=== PATIENT | female | born 2000 | race Caucasian/White ===

== ENCOUNTER 2018-08-09 16:54 | Emergency (ER) | payer BC ==
[~2018-08-09] VITALS: Ht 180.3 cm; Wt 107.0 kg
[2018-08-09] MEDS ORDERED: SODIUM CHLORIDE 0.9% 1,000ML IVBOLUS ONE (17:30)
[2018-08-09] MEDS ORDERED: OXYcodone/APAP 5/325MG TABLET PO ONE (17:30)
[2018-08-09] MEDS ORDERED: CLINDAMYCIN PMX 900MG/50ML 50 ML IV ONE (17:30)
[2018-08-09] MEDS ORDERED: DEXAMETHASONE 4 MG/ML, 1ML IVPush ONE (17:30)
[2018-08-09] MEDS ORDERED: SODIUM CHLORIDE FLUSH 10ML SYR IVF ONE (17:30)
[2018-08-09] MEDS ORDERED: DEXAMETHASONE 4 MG/ML, 1ML ONE (17:55)
[2018-08-09] MEDS ORDERED: CLINDAMYCIN PMX 900MG/50ML 50 ML ONE (17:55)
[2018-08-09] MEDS ORDERED: OXYcodone/APAP 5/325MG TABLET ONE (17:55)
[2018-08-09 17:56] LABS: BASOPHILS # (AUTO) 0.02 x10^3/uL (0-0.3); BASOPHILS % (AUTO) 0 % (0-1); EOSINOPHILS # (AUTO) 0.02 x10^3/uL (0-0.8); EOSINOPHILS % (AUTO) 0 % (1-7); LYMPHOCYTES # (AUTO) 1.91 x10^3/uL (1-6.1); LYMPHOCYTES % (AUTO) 22 % (22-44); MD NO; MEAN CORPUSCULAR HEMOGLOBIN 30.9 pg (27.0-34.8); MEAN CORPUSCULAR HGB CONC 33.9 g/dL (32.4-35.8); MEAN CORPUSCULAR VOLUME 91.2 fL (80-100); MEAN PLATELET VOLUME 7.3 fL (7.4-10.4); MONOCYTES # (AUTO) 1.27 x10^3/uL (0-1.4); MONOCYTES % (AUTO) 15 % (2-9); NEUTROPHILS # (AUTO) 5.39 x10^3/uL (1.8-8.0); NEUTROPHILS % (AUTO) 63 % (42-75); PLATELET COUNT 257 x10^3/uL (130-400); RED BLOOD COUNT 4.64 x10^6/uL (3.82-5.3); RED CELL DISTRIBUTION WIDTH 12.6 % (9.6-15.2)
[2018-08-09] MEDS ORDERED: DEXAMETHASONE 12 MG in SODIUM CHLORIDE 0.9% 50 ML IV ONE (18:00)
--- NOTE | 2018-08-09 18:00 | NUR ---
PT RESTING IN BED, FAMILY AT BEDSIDE. NO ACUTE SIGNS OF DISTRESS. VSS. PT REPORTS NAUSEA AND HEADACHE FOR SEVERAL DAYS. PT REPORTS SHE HAS NOT BEEN EATING OR DRINKING FOR 2 DAYS.
[2018-08-09 18:07] LABS: ALBUMIN 3.8 g/dL (3.4-5.0); ANION GAP 8 mmol/L (5-15); CALCIUM 9.5 mg/dL (8.5-10.1); CHLORIDE 104 mmol/L (98-107); CREATININE 0.89 mg/dL (0.55-1.02)
--- NOTE | 2018-08-09 18:44 | NUR ---
SPOKE WITH MD PRIOR TO HANGING ABX, HE DECLINED CULTURES. PT SAYS PAIN MEDICATION IS HELPING, PAIN AT A 6 NOW INSTEAD OF AN 8. FAMILY AT BEDSIDE.
--- NOTE | 2018-08-09 19:04 | NUR ---
REPORT RECEIVED FROM USHA MCKEON.
--- NOTE | 2018-08-09 19:07 | NUR ---
REPORT GIVEN TO ALLY
[2018-08-09 19:12] VITALS: BP 123/70
--- NOTE | 2018-08-09 20:27 | NUR ---
PT GIVEN DC INSTRUCTIONS AND SCRIPTS. PT EDUCATED REGARDING DC MEDICATIONS. PT'S AOX4. RESPS EVEN AND UNLABORED. PT AMB TO DC WITH STEADY GAIT. NO ACUTE DISTRESS AT DC.
== END 2018-08-09 20:27 | disposition home or self-care (01) ==
LOC: ED 19:54
DX: B27.90 Infectious mononucleosis, unspecified without complication (principal)
CPT/HCPCS: 36415; 80048; 82040; 84703; 85025; 86308; 96365; 96368; 99283; J1100; J7030